=== PATIENT | female | born 1960 | race Caucasian/White ===

== ENCOUNTER 2016-07-01 17:17 | Emergency (ER) | payer OTHER ==
[~2016-07-01] VITALS: Ht 165.1 cm; Wt 72.5 kg
[2016-07-01 17:24] VITALS: BP 133/88; PULSE 96; RESP 18; TEMP 98.2; O2SAT 96
[2016-07-01] MEDS ORDERED: PROT40TA PO (17:45)
[2016-07-01] MEDS ORDERED: AZIT250T3 PO (17:52)
--- NOTE | 2016-07-01 17:52 | PD ---
HPI Chief Complaint: Cold / Flu Symptoms Time Seen by Provider: 17:50 Travel History International Travel<30 days: No Contact w/Intl Traveler<30days: No Traveled to known affect area: No History of Present Illness HPI Patient is a 56 year old female presents to the ER for evaluation of sore throat , congestion. Patient states just completed a course of antibiotics recently for GI bug. Denies fevers. States symptoms for 2 days gradually worsening. Denies CP/SOB/Abdominal pain/nvd/constipation. PFSH Past Medical History Diminished Hearing: No Diverticulitis: Yes GERD: Yes Tetanus Vaccination: Unknown Influenza Vaccination: Yes ?: Not Past Surgical History Surgical History: No Previous Surgery Social History Alcohol Use: Yes (soc) Tobacco Use: No Substance Use: No Allergies-Medications Reported Meds & Prescriptions Reported Meds & Active Scripts Active Azithromycin 250 Mg Tab 250 Mg PO DIRECTED Take 2 tabs (500 mg) on day 1 then 1 tab daily x 4 days. Reported Protonix (Pantoprazole Sodium) 40 Mg Tab 40 Mg PO DAILY Review of Systems Except as stated in HPI: all other systems reviewed are Neg Physical Exam Narrative GENERAL: WD/WN in nad. SKIN: Warm and dry. HEAD: Normocephalic. EYES: No scleral icterus. No injection or drainage. ENT: Minimal erythema in posterior oropharynx. Tonsils minimally enlarged. Left sided purulence vs tonsillar stone. Airway patent. uvula midline. NECK: Supple, trachea midline. No JVD or lymphadenopathy. CARDIOVASCULAR: Regular rate and rhythm without murmurs, gallops, or rubs. RESPIRATORY: Breath sounds equal bilaterally. No accessory muscle use. GASTROINTESTINAL: Abdomen soft, non-tender, nondistended. MUSCULOSKELETAL: No cyanosis, or edema. BACK: Nontender without obvious deformity. No CVA tenderness. Data Data Last Documented VS Vital Signs Date Time Temp Pulse Resp B/P Pulse Ox O2 Delivery O2 Flow Rate FiO2 07/01/16 17:24 98.2 96 18 133/88 96 MDM Medical Decision Making Medical Screen Exam Complete: Yes Emergency Medical Condition: Yes Differential Diagnosis pharyngitis, uri, pna unlikely. Narrative Course Roomed in ER, appears well. Patient non-allergic to azithromycin. Will have trial course. DIscussed symptomatic management and return to ED criteria. Stable for discharge. Diagnosis Primary Impression: Pharyngitis Qualified Code: J02.9 - Pharyngitis, unspecified etiology Med/Other Pt SpecificInfo: Prescription(s) given Scripts Azithromycin 250 Mg Ppy380 Mg PO DIRECTED #6 TAB Ref 0 Take 2 tabs (500 mg) on day 1 then 1 tab daily x 4 days. Prov:Sy Edwards MD 07/01/16 Disposition: 01 DISCHARGE HOME Condition: Stable Sy Edwards MD Jul 01, 2016 17:52
== END 2016-07-01 18:49 | disposition home or self-care (01) ==
LOC: PHEFT 17:17
DX: J02.9 Acute pharyngitis, unspecified (principal); Z87.19 Personal history of other diseases of the digestive system
CPT/HCPCS: 99283